=== PATIENT | female | born 1965 | race African-American/Black ===

== ENCOUNTER 2019-06-08 10:42 | Inpatient (IN) | payer MEDICARE, OTHER ==
[~2019-06-08] VITALS: Ht 154.9 cm; Wt 46.7 kg
[2019-06-08 10:42] VITALS: BP 140/90
[~2019-06-08 10:42] MED LIST: AMLO10TA PO; ATI.5 PO; LEVE1000 PO; PROM25TA85 PO; RANI-287 PO; SERT50TA PO
--- NOTE | 2019-06-08 10:52 | NUR ---
PT AMBULATED TO ER BED 02
--- NOTE | 2019-06-08 10:57 | NUR ---
C/O INTERMITTENT CHEST PAIN 8/10, CHILLS, N/V X 1.5 WEEKS. PT DENIES FEVER/DIARRHEA. HX: EPILEPSY, HTN, MIGRAINES, HYPOTHYROID, ANXIETY RX: KEPPRA, TOPAMAX, LISINOPRIL, TRAMADOL, IMITREX
[2019-06-08] MEDS ORDERED: MORPHINE SULFATE 4 MG/ML SYR IVP ONE (11:10)
[2019-06-08] MEDS ORDERED: NITROGLYCERIN 2% 1 GM PKT TP ONE (11:10)
--- NOTE | 2019-06-08 11:25 | NUR ---
BLOOD SAMPLE SEND TO THE LAB
[2019-06-08 11:35] LABS: BASOPHILS % (AUTO) 0.3 % (0.0-2.0); EOSINOPHILS # (AUTO) 0.1 K/uL (0-0.4); EOSINOPHILS % (AUTO) 0.8 % (0.0-4.0); HEMOGLOBIN 14.7 g/dL (12.0-16.0); LYMPHOCYTES # (AUTO) 1.3 K/uL (2.5-16.5); LYMPHOCYTES % (AUTO) 16.5 % (20.5-51.1); MEAN CORPUSCULAR HEMOGLOBIN 33 pg (27-31); MEAN CORPUSCULAR HGB CONC 34 g/dL (33-37); MEAN CORPUSCULAR VOLUME 98.9 fL (80-94); MONOCYTES # (AUTO) 0.4 K/uL (0.8-1.0); MONOCYTES % (AUTO) 5.4 % (1.7-9.3); NEUTROPHILS # (AUTO) 6.2 K/uL (1.8-7.7); PLATELET COUNT (AUTO) 341 K/uL (140-450); RED BLOOD CELL COUNT(AUTO) 4.44 MIL/uL (4.20-5.40); RED CELL DISTRIBUTION WIDTH 12.7 % (11.6-13.7); WHITE BLOOD COUNT (AUTO) 8.1 K/uL (4.8-10.8)
[2019-06-08 11:47] LABS: CHOL/HDL RATIO 3.9 (1-4.5)
[2019-06-08 11:51] LABS: ALBUMIN 4.2 g/dL (3.4-5.0); ANION GAP 18.9 (8-16); CARBON DIOXIDE 25.7 mmol/L (21-32); CREATININE 0.7 mg/dL (0.6-1.3); POTASSIUM 3.6 mmol/L (3.5-5.1); TOTAL BILIRUBIN 0.6 mg/dL (0.0-1.0)
[2019-06-08 11:58] LABS: CREATINE KINASE MB 2.9 ng/mL (0-3.6)
[2019-06-08] MEDS ORDERED: ATORVASTATIN 80 MG TAB PO SCH (12:35)
[2019-06-08] MEDS ORDERED: GABA300C PO (12:47)
[2019-06-08] MEDS ORDERED: IMI50 PO (12:47)
[2019-06-08] MEDS ORDERED: SYN.075 PO (12:47)
[2019-06-08] MEDS ORDERED: TRAM50TA1 PO (12:47)
[2019-06-08] MEDS ORDERED: TOP100 PO (12:47)
[2019-06-08] MEDS ORDERED: ONDANSETRON 4 MG/2 ML VIAL IVP ONE (12:50)
[2019-06-08] MEDS ORDERED: MORPHINE SULFATE 2 MG/ML SYR IVP PRN (13:25)
[2019-06-08] MEDS ORDERED: DOCUSATE SODIUM 100 MG GELCAP PO PRN (13:25)
--- NOTE | 2019-06-08 13:25 | NUR ---
PATIENT ARRIVE VIA GURNEY TO FLOOR. PATIENT AMBULATED TO BED WITH STANDBY ASSIST. REPORT RECEIVED FROM DIALYSIS NURSEANN MARIE GLASER AT BEDSIDE FOR CONTINUITY OF CARE. PATIENT AOX4. RESPIRATIONS EVEN AND UNLABORED ON ROOM AIR, PATIENT STATES THAT PAIN LEVEL IS "BETTER". UPDATED BOARD. IV SITE INTACT, ASYMPTOMATIC AND PATENT, CURRENTLY SALINE LOCKED. UPDATED PATIENT TO PLAN OF CARE, SHE VERBALIZED UNDERSTANDING. ORIENTED PATIENT TO FLOOR, CALL LIGHT, TV. CALL LIGHT WITHIN REACH, WILL CONTINUE TO MONITOR PATIENT.
--- NOTE | 2019-06-08 13:30 | NUR ---
Patient will be admitted to care of Dr Mccloud. Admited to tele room number 106B. Belongings list completed. Report to ANN MARIE Medeiros.
[2019-06-08 13:35] VITALS: BP 169/96
--- NOTE | 2019-06-08 13:45 | NUR ---
DR ASHTON IN TO SPEAK TO THE PATIENT. WILL WAIT FOR HIS ORDERS.
[2019-06-08] MEDS ORDERED: NITROGLYCERIN 0.4 MG TAB SL PRN (13:50)
[2019-06-08 13:57] LABS: PROTHROMBIN TIME 9.9 secs (10.8-13.4)
[2019-06-08] MEDS ORDERED: amLODIPine 5 MG TAB PO SCH (14:00)
[2019-06-08 14:30] LABS: FREE T4 (FREE THYROXINE) 1.7 ng/dL (0.76-1.46); MAGNESIUM 1.7 mg/dL (1.8-2.4); PHOSPHORUS 4.4 mg/dL (2.5-4.9); THYROID STIMULATING HORMONE 0.49 uIU/mL (0.34-3.74)
[2019-06-08] MEDS: NACL 0.9% 1,000 ML IV SCH (14:30)
--- NOTE | 2019-06-08 14:47 | NUR ---
SCHEDULED MEDICATIONS GIVEN. PATIENT TOLERATED IT WELL. EDUCATION ABOUT MEDICATION GIVEN TO PATIENT. SHE VERBALIZED UNDERSTANDING. PT C/O HEADACHE AT THE MOMENT. WILL SPEAK TO DR. ASHTON ABOUT PATIENT'S PRN PAIN MEDICATION AND ALLERGIES.
--- NOTE | 2019-06-08 15:15 | NUR ---
PER YOLANDA, PHARMACIST, HE SPOKE TO DR. ASHTON ABOUT PATIENT'S ALLERGIES, AND NORCO IS OK. SPOKE TO PATIENT, SHE STATED SHE HAS HAD NORCO IN THE PAST WITH NO REACTIONS. WILL REASSESS PATIENT'S PAIN AND MEDICATED NEEDED.
--- NOTE | 2019-06-08 15:30 | NUR ---
PATIENT'S OWN MEDICATION BROUGHT TO PHARMACY. PER PATIENT, NO FAMILY MEMBERS CAN COME PICK THEM UP TONIGHT. PATIENT AWARE OF OWN MEDICATION IN PHARMACY AND STEPS TO RETRIEVE IT ONCE DISCHARGED. PATIENT RESTING IN BED, ON HER PHONE. ALL NEEDS MET AT THIS TIME. SAFETY PRECAUTIONS IN PLACE, BED IN LOWEST POSITION, CALL LIGHT WITHIN REACH, WILL CONTINUE TO MONITOR PATIENT.
[2019-06-08 16:00] VITALS: BP 162/94
[2019-06-08] MEDS: GABAPENTIN 300 MG CAP PO SCH (16:26)
[2019-06-08] MEDS: HYDROcodone/APAP 5/325 MG 1 TAB TAB PO PRN ×2 (16:26→22:27)
[2019-06-08] MEDS: ONDANSETRON 4 MG/2 ML VIAL IM/IVP PRN ×2 (16:28→21:50)
--- NOTE | 2019-06-08 16:30 | NUR ---
PATIENT C/O HEADACHE 02/10. PRN NORCO OFFERED. PER PATIENT, SHE HAS TAKEN NORCO BEFORE WITH NO SIDE EFFECTS. PATIENT ALSO C/O NAUSEA, PRN ZOFRAN OFFERED AND GIVEN. NORCO AND SCHEDULED MEDICATION GIVEN. PATIENT'S FRIENDS AT BEDSIDE. SAFETY PRECAUTIONS IN PLACE, CALL LIGHT WITHIN REACH, WILL CONTINUE TO MONITOR PATIENT.
--- NOTE | 2019-06-08 18:33 | NUR ---
PATIENT RESTING WITH EYES CLOSED. RESPIRATIONS EVEN AND UNLABORED, NO S/S OF SOB OR DISTRESS NOTED. SAFETY PRECAUTIONS IN PLACE, CALL LIGHT WITHIN REACH, WILL CONTINUE TO MONITOR PATIENT.
--- NOTE | 2019-06-08 19:21 | NUR ---
REPORT GIVEN TO EQUIPMENT MAN NURSE AT BEDSIDE FOR CONTINUITY OF CARE. PATIENT IN STABLE CONDITION.
--- NOTE | 2019-06-08 19:22 | NUR ---
RECEIVED REPORT FROM AM NURSE AT BEDSIDE. PT LAYING IN BED AWAKE ON LEFT SIDE. PATIENT AOX4. RESPIRATIONS EVEN AND UNLABORED ON ROOM AIR. UPDATED PATIENT BOARD. IV SITE INTACT, ASYMPTOMATIC AND PATENT WITH NS AT 50ML/HR. CALL LIGHT WITHIN REACH,SEIZURE PRECAUTIONS IN PLACE. LOW BED IN PLACE. WILL CONTINUE TO MONITOR PATIENT.
[2019-06-08 20:05] VITALS: BP 139/79
[2019-06-08] MEDS ORDERED: METOPROLOL 25 MG TAB PO SCH ×2 (21:00)
--- NOTE | 2019-06-08 21:45 | NUR ---
VERIFIED WITH DR. WASHINGTON THE 50 MG LOPRESSOR, BP IS 139/79, HR 83
[2019-06-08] MEDS: levETIRAcetam 500 MG TAB PO SCH (21:48)
[2019-06-08] MEDS: TOPIRAMATE 100 MG TAB PO SCH (21:49)
[2019-06-09 00:05] VITALS: BP 103/66
--- NOTE | 2019-06-09 00:35 | NUR ---
PT REFUSED TORADOL, NON ADMINISTERED. EXPLAINED THE BENEFITS AND RSIKS. PT VERBALIZED UNDERSTANDING
[2019-06-09 04:00] VITALS: BP 115/71
[2019-06-09] MEDS: LEVOTHYROXINE 0.075 MG TAB PO SCH (05:51)
[2019-06-09] MEDS: HYDROcodone/APAP 5/325 MG 1 TAB TAB PO PRN (05:51)
--- NOTE | 2019-06-09 05:51 | NUR ---
SYNTHROID GIVEN AT THIS TIME
--- NOTE | 2019-06-09 05:51 | NUR ---
NORCO GIVEN AT THIS TIME FOR HEADACHE OF 610
[2019-06-09] MEDS: ONDANSETRON 4 MG/2 ML VIAL IM/IVP PRN ×3 (05:53→14:51)
--- NOTE | 2019-06-09 05:53 | NUR ---
PT STATED SHE FELT NO NAUSEA, PT REFUSED ONDANSETRON
--- NOTE | 2019-06-09 07:09 | NUR ---
PT AWAKE, ALERT ORIENTED X 4, AMBULATORY. PT IN STABLE CONDITION AT THIS TIME
--- NOTE | 2019-06-09 07:10 | NUR ---
RECEIVED REPORT FROM PM NURSE AT BEDSIDE FOR CONTINUITY OF CARE. PT SLEEPING IN BED ON LEFT SIDE. PATIENT AOX4. RESPIRATIONS EVEN AND UNLABORED ON ROOM AIR. FLACC-0. UPDATED PATIENT BOARD. IV SITE INTACT, ASYMPTOMATIC AND PATENT WITH NS INFUSING AT 50 ML/HR. SAFETY PRECAUTIONS IN PLACE, CALL LIGHT WITHIN REACH, SEIZURE PRECAUTIONS IN PLACE. LOW BED IN PLACE. WILL CONTINUE TO MONITOR PATIENT.
[2019-06-09 07:15] LABS: BASOPHILS % (AUTO) 0.4 % (0.0-2.0); EOSINOPHILS # (AUTO) 0.1 K/uL (0-0.4); EOSINOPHILS % (AUTO) 1.3 % (0.0-4.0); HEMATOCRIT 40.6 % (36-48); HEMOGLOBIN 13.6 g/dL (12.0-16.0); LYMPHOCYTES # (AUTO) 1.9 K/uL (2.5-16.5); LYMPHOCYTES % (AUTO) 22.4 % (20.5-51.1); MEAN CORPUSCULAR HEMOGLOBIN 33 pg (27-31); MEAN CORPUSCULAR HGB CONC 33 g/dL (33-37); MEAN CORPUSCULAR VOLUME 99.1 fL (80-94); MONOCYTES # (AUTO) 0.7 K/uL (0.8-1.0); MONOCYTES % (AUTO) 8.7 % (1.7-9.3); NEUTROPHILS # (AUTO) 5.7 K/uL (1.8-7.7); NEUTROPHILS % (AUTO) 67.2 % (42.2-75.2); PLATELET COUNT (AUTO) 311 K/uL (140-450); RED CELL DISTRIBUTION WIDTH 12.5 % (11.6-13.7); WHITE BLOOD COUNT (AUTO) 8.5 K/uL (4.8-10.8)
[2019-06-09 07:19] LABS: CARBON DIOXIDE 23.7 mmol/L (21-32); CREATININE 0.7 mg/dL (0.6-1.3); POTASSIUM 3.7 mmol/L (3.5-5.1)
--- NOTE | 2019-06-09 07:40 | NUR ---
DOCTORS DOING THEIR ROUNDS. BREAKFAST BROUGHT TO PATIENT. SHE STATED SHE WILL ATTEMPT TO EAT BREAKFAST. WILL CONTINUE TO MONITOR PATIENT.
[2019-06-09 08:00] VITALS: BP 135/73
--- NOTE | 2019-06-09 08:03 | NUR ---
PATIENT HAS BEEN SCREENED AND CATEGORIZED MODERATE NUTRITION RISK. PATIENT WILL BE SEEN WITHIN 3-5 DAYS OF ADMISSION. 06/11/19 06/13/[address]
--- NOTE | 2019-06-09 08:40 | NUR ---
PATIENT C/O NAUSEA. REQUESTED PRN ZOFRAN. INFORMED HER OF NEXT SCHEDULED DOSE. SHE VERBALIZED UNDERSTANDING. PATIENT AGREEABLE TO TAKE ZOFRAN WHEN NEXT DOSE DUE AND TO TAKE 0900 MEDICATIONS THEN WELL. CALL LIGHT WITHIN REACH, WILL CONTINUE TO MONITOR PATIENT.
[2019-06-09 09:12] LABS: BARBITURATE, URINE NEG. ng/ml (NEG <=200); BENZODIAZEPINE, URINE NEG. ng/mL (NEG <=200); CANNABINOID, URINE NEG. ng/mL (NEG <=50); COCAINE, URINE NEG. ng/mL (NEG <=300); OPIATE, URINE POS. ng/mL (NEG <=2000); PHENCYCLIDINE SCREEN,URINE NEG. ng/mL (NEG <=25)
--- NOTE | 2019-06-09 09:48 | NUR ---
PRN ZOFRAN GIVEN TO PATIENT FOR C/O NAUSEA. PATIENT TOLERATED IT WELL. DAUGHTER AT BEDSIDE. PATIENT AGREEABLE TO TAKE SCHEDULED MEDICATIONS IN 5-10 MINUTES. WILL CONTINUE TO MONITOR PATIENT.
[2019-06-09] MEDS: levETIRAcetam 500 MG TAB PO SCH ×2 (10:06→20:18)
[2019-06-09] MEDS: SERTRALINE 50 MG TAB PO SCH (10:06)
[2019-06-09] MEDS: NACL 0.9% 1,000 ML IV SCH (10:07)
[2019-06-09] MEDS: METOPROLOL 25 MG TAB PO SCH ×2 (10:07→20:17)
[2019-06-09] MEDS: amLODIPine 5 MG TAB PO SCH (10:07)
[2019-06-09] MEDS: ATORVASTATIN 20 MG TAB PO SCH (10:07)
[2019-06-09] MEDS: GABAPENTIN 300 MG CAP PO SCH ×3 (10:07→16:14)
[2019-06-09] MEDS: TOPIRAMATE 100 MG TAB PO SCH ×2 (10:07→20:18)
--- NOTE | 2019-06-09 10:08 | NUR ---
ORDERED MEDICATIONS GIVEN. MEDICATIONS AND SIDE EFFECTS OF NEW MEDICATIONS EXPLAINED TO PATIENT. PATIENT VERBALIZED UNDERSTANDING AND TOLERATED THE MEDICATIONS WELL. DAUGHTER AT BEDSIDE. PATIENT HAD QUESTIONS ABOUT LANGUAGE TEACHER CONSULT. ANSWERED PATIENT'S QUESTIONS. ALL NEEDS MET AT THIS TIME. PATIENT STATES "FEELING BETTER", LESS NAUSEA. CALL LIGHT WITHIN REACH, WILL CONTINUE TO MONITOR PATIENT.
[2019-06-09] MEDS ORDERED: MAGNESIUM OXIDE 400 MG TAB PO SCH (11:00)
--- NOTE | 2019-06-09 11:30 | NUR ---
DR FITZPATRICK IN TO SEE THE PATIENT. WILL WAIT FOR HIS EVALUATION.
[2019-06-09 11:55] VITALS: BP 123/68
--- NOTE | 2019-06-09 12:00 | NUR ---
ORDERED MEDICATIONS GIVEN. PATIENT TOLERATED THE MEDICATIONS WELL. PATIENT DENIES NAUSEA AND CHEST PAIN AT THIS TIME. ALL NEEDS MET AT THIS TIME. CALL LIGHT WITHIN REACH, WILL CONTINUE TO MONITOR PATIENT.
--- NOTE | 2019-06-09 14:51 | NUR ---
PATIENT C/O NAUSEA, PRN ZOFRAN GIVEN. PATIENT TOLERATED IT WELL. DR. ASHTON NOTIFIED OF PATIENT'S FREQUENT NAUSEA BOUTS AND LACK OF APPETITE. NO NEW ORDERS, CALL LIGHT WITHIN REACH, WILL CONTINUE TO MONITOR PATIENT.
[2019-06-09 15:38] VITALS: BP 104/68
--- NOTE | 2019-06-09 16:16 | NUR ---
ORDERED MEDICATIONS GIVEN TO PATIENT. SHE TOLERATED THEM WELL. NO COMPLAINTS OF NAUSEA OF THIS TIME. ALL NEEDS MET. CALL LIGHT WITHIN REACH, WILL CONTINUE TO MONITOR PATIENT.
--- NOTE | 2019-06-09 18:15 | NUR ---
PATIENT RESTING IN BED ON THE PHONE, NO COMPLAINTS AT THIS TIME. WILL CONTINUE TO MONITOR PATIENT AND ENDORSE TO PROFILING MACHINE SET UP OPERATOR TOOL NURSE.
--- NOTE | 2019-06-09 19:18 | NUR ---
REPORT GIVEN TO COAL CHUTE WORKER NURSE AT BEDSIDE FOR CONTINUITY OF CARE. PATIENT IN STABLE CONDITION.
--- NOTE | 2019-06-09 19:19 | NUR ---
BEDSIDE REPORT RECEIVED FROM DAY SHIFT RN. A/O X4 PERSON PLACE TIME AND EVENT. DISCUSSED PLAN OF CARE. VERBALIZED UNDERSTANDING. AMBULATORY WITH STEADY GAIT. NO SIGNS OF DISTRESS. NO SOB. EVEN UNLABORED BREATHING. ROOM AIR. NO PAIN REPORTED AT THIS TIME. SKIN INTACT. IV @ R AC 20G INFUSING NS @50. PATENT AND INTACT. TELE MONITOR PLACED. BED IN LOWEST POSITION. SEIZURE PRECAUTIONS IN PLACE. CALL LIGHT WITHIN REACH. WILL CONTINUE TO MONITOR.
[2019-06-09 20:00] VITALS: BP 107/67
[2019-06-09] MEDS ORDERED: NYSTATIN CRE 100 MU/GM 15 GM TUBE TP SCH (21:00)
--- NOTE | 2019-06-09 21:00 | NUR ---
PT LAYING IN BED. MEDS ADMIN. SIDE EFFECTS WERE DISCUSSED. VERBALIZE UNDERSTANDING. TOLERATED WELL. VSS.
--- NOTE | 2019-06-09 23:00 | NUR ---
PT REQUESTS AN EXTRA BLANKET. NO PAIN REPORTED NO NAUSEA REPORTED. WILL CONTINUE TO MONITOR.
[2019-06-10] VITALS: BP 93/60
--- NOTE | 2019-06-10 00:39 | NUR ---
PT SLEEPING IN BED NO SIGNS OF DISTRESS. VSS. WILL CONTINUE TO MONITOR.
--- NOTE | 2019-06-10 02:43 | NUR ---
PT SLEEPING IN BED. EASILY AROUSABLE. NO SIGNS OF DISTRESS. NO PAIN REPORTED. WILL CONTINUE TO MONITOR.
[2019-06-10] MEDS: NACL 0.9% 1,000 ML IV SCH (03:53)
[2019-06-10 04:00] VITALS: BP 108/58
--- NOTE | 2019-06-10 04:15 | NUR ---
PT SLEEPING IN BED. NO SIGNS OF DISTRESS. VITALS STABLE. NO PAIN REPORTED. NO NAUSEA REPORTED
[2019-06-10] MEDS: LEVOTHYROXINE 0.075 MG TAB PO SCH (06:21)
--- NOTE | 2019-06-10 06:41 | NUR ---
PT SLEEPING IN BED. EVEN UNLABORED BREATHING. BED IN LOWEST POSITION. PT IN STABLE CONDITION. WILL GIVE BEDSIDE REPORT TO DAYSHIFT RN FOR CONTINUITY OF CARE.
--- NOTE | 2019-06-10 07:18 | NUR ---
Received report from overnight babysitter nurse. Pt is resting in bed. Call light in reach.
[2019-06-10 08:00] VITALS: BP 130/75
[2019-06-10] MEDS: GABAPENTIN 300 MG CAP PO SCH ×2 (08:35→13:28)
[2019-06-10] MEDS: ATORVASTATIN 20 MG TAB PO SCH (08:36)
[2019-06-10] MEDS: amLODIPine 5 MG TAB PO SCH (08:37)
[2019-06-10] MEDS: SERTRALINE 50 MG TAB PO SCH (08:37)
[2019-06-10] MEDS: levETIRAcetam 500 MG TAB PO SCH (08:38)
[2019-06-10] MEDS: METOPROLOL 25 MG TAB PO SCH (08:38)
[2019-06-10] MEDS: TOPIRAMATE 100 MG TAB PO SCH (08:39)
[2019-06-10] MEDS: ONDANSETRON 4 MG/2 ML VIAL IM/IVP PRN (08:47)
--- NOTE | 2019-06-10 08:50 | NUR ---
PATIENT C/O NAUSEA, PRN ZOFRAN GIVEN. PATIENT TOLERATED IT WELL.
[2019-06-10] MEDS ORDERED: ATOR20TA40 PO (09:45)
[2019-06-10 09:47] LABS: APPEARANCE,URINE CLEAR (CLEAR); BILIRUBIN,URINE NEGATIVE (NEGATIVE); BLOOD, URINE NEGATIVE (NEGATIVE); COLOR,URINE YELLOW (YELLOW); LEUKOCYTE ESTERASE ,URINE NEGATIVE (NEGATIVE); NITRITE, URINE NEGATIVE (NEGATIVE); UGLUCOSE NEGATIVE (NEGATIVE)
[2019-06-10 09:57] LABS: RBC,URINE 0 /HPF (0-5); WBC,URINE NONE SEEN /HPF (0-5)
[2019-06-10] MEDS ORDERED: LACTULOSE 20 GM/30 ML UDC PO SCH (10:25)
--- NOTE | 2019-06-10 10:51 | NUR ---
PT SLEEPING IN BED. NO SIGNS OF DISTRESS. NO PAIN REPORTED. NO NAUSEA REPORTED
[2019-06-10 12:00] VITALS: BP 118/69
--- NOTE | 2019-06-10 13:18 | NUR ---
PT SLEEPING IN BED. NO SIGNS OF DISTRESS. NO PAIN REPORTED. NO NAUSEA REPORTED
[2019-06-10] MEDS ORDERED: INFLUENZA VACCINE QUAD 0.5 ML SYR IM PRN (15:05)
--- NOTE | 2019-06-10 15:54 | NUR ---
Pt discharged home. Discharge instructions given. Pt verbalized understanding. Pt home medications given back to her. IV removed from right AC. No bleeding. Pt ambulated out the door with steady gait. all belongings with patient upon discharge. Friend accompanied her to the main entrance.
== END 2019-06-10 15:54 | disposition home or self-care (01) | DRG 392 ==
LOC: MED 10:42 → MTU 12:58
PROVIDERS: ADMIT Family Medicine; ATTEND Family Medicine
DX: K21.9 Gastro-esophageal reflux disease without esophagitis (principal); R07.89 Other chest pain; G40.909 Epilepsy, unspecified, not intractable, without status epilepticus; I10 Essential (primary) hypertension; E03.9 Hypothyroidism, unspecified; F32.9 Major depressive disorder, single episode, unspecified; G43.909 Migraine, unspecified, not intractable, without status migrainosus; J45.909 Unspecified asthma, uncomplicated; F41.9 Anxiety disorder, unspecified; E78.5 Hyperlipidemia, unspecified; Q85.00 Neurofibromatosis, unspecified; Z80.0 Family history of malignant neoplasm of digestive organs; Z79.899 Other long term (current) drug therapy; Z88.6 Allergy status to analgesic agent; Z88.5 Allergy status to narcotic agent; Z87.891 Personal history of nicotine dependence; Z82.5 Family history of asthma and other chronic lower respiratory diseases; Z80.3 Family history of malignant neoplasm of breast
CPT/HCPCS: 36415; 71045; 74022; 80048; 80053; 80305; 81001; 81025; 82550; 82553; 83036; 83605; 83690; 83735; 83880; 84100; 84439; 84443; 84484; 85025; 85379; 85610; 85730; 87081; 93005; 96374; 96375; 99291; J2270; J2405; J7030; Q0092

== ENCOUNTER 2019-08-19 17:47 | Emergency (ER) | payer OTHER ==
[~2019-08-19] VITALS: Ht 154.9 cm; Wt 45.8 kg
[~2019-08-19 17:47] MED LIST changes: +ATOR20TA40 PO; +GABA300C PO; +IMI50 PO; -PROM25TA85 PO; +SYN.075 PO; +TOP100 PO; +TRAM50TA1 PO
--- NOTE | 2019-08-19 17:47 | NUR ---
Patient BIBA ALS, transferred to bed 2. RN evaluating patient at bedside.
[2019-08-19 17:48] VITALS: BP 143/93
--- NOTE | 2019-08-19 18:05 | NUR ---
54/F BIBA FROM HOME C/O HAVING AN AURA FOR THE PAST 30 MINUTES, PT HAS HX OF EPILEPSY AND STATES SHE SEES LIGHTS BEFORE HAVING A SEIZURE. ALSO C/O NAUSEA, DIZZINESS, HEADACHEX TODAY. HX EPILEPSY, HTN, MIGRAINE HEADACHE. LAST SEIZURE JUN 2019. PATIENT STATES PAIN OF 7/10 AT THIS TIME; VSS; PATIENT POSITIONED FOR COMFORT; HOB ELEVATED; BEDRAILS UP X2; BED DOWN. ER MD MADE AWARE OF PT STATUS.
--- NOTE | 2019-08-19 18:05 | NUR ---
Note undone in [facility] - 08/19/19 at 1901 by [email or web address] 54/F BIBA FROM HOME C/O HAVING AN AURA FOR THE PAST 30 MINUTES, PT HAS HX OF EPILEPSY AND STATES SHE SEES LIGHTS BEFORE HAVING A SEIZURE. ALSO C/O NAUSEA, DIZZINESS, HEADACHEX TODAY. HX EPILEPSY, HTN, MIGRAINE HEADACHE,HTN. LAST SEIZURE JUN 2019. PATIENT STATES PAIN OF 7/10 AT THIS TIME; VSS; PATIENT POSITIONED FOR COMFORT; HOB ELEVATED; BEDRAILS UP X2; BED DOWN. GIGI GILLESPIE MADE AWARE OF PT STATUS. Addendum: 08/19/19 at 1832 by [email or web address] Amendment undone in [facility] - 08/19/19 at 190 by [email or web address] PER EMS; PT GOT ZOFRAN 4 MG IV AT HOME FOR N/V.
--- NOTE | 2019-08-19 19:13 | NUR ---
RECEIVED REPORT FROM ANN MARIE LUIS.
--- NOTE | 2019-08-19 19:13 | NUR ---
Pt report given to YOSHI RN. Transfer of care at this time.
[2019-08-19] MEDS ORDERED: KETOROLAC 30 MG/ML VIAL IVP ONE (19:20)
[2019-08-19] MEDS ORDERED: NACL 0.9% 1,000 ML IV ONE (19:20)
[2019-08-19 19:57] LABS: ALBUMIN 3.6 g/dL (3.4-5.0); ANION GAP 12.4 (8-16); CARBON DIOXIDE 25.9 mmol/L (21-32); CREATININE 0.7 mg/dL (0.6-1.3); POTASSIUM 4.3 mmol/L (3.5-5.1); TOTAL BILIRUBIN 0.2 mg/dL (0.0-1.0)
[2019-08-19 21:32] VITALS: BP 136/61
--- NOTE | 2019-08-19 21:32 | NUR ---
HEVER OKAY TO DISCHARGE PATIENT. Patient discharged with v/s stable. Written and verbal after care instructions given and explained. Patient verbalized understanding. Ambulatory with steady gait. All questions addressed prior to discharge. Advised to follow up with PMD.
--- NOTE | 2019-08-19 21:32 | NUR ---
PER DR. MCDERMOTT, CANCEL UA AND UDS. PATIENT OKAY FOR DISCHARGE.
== END 2019-08-19 21:32 | disposition home or self-care (01) ==
LOC: MED 17:47
DX: R51 Headache (principal); G40.909 Epilepsy, unspecified, not intractable, without status epilepticus; J45.909 Unspecified asthma, uncomplicated; I10 Essential (primary) hypertension; Z98.890 Other specified postprocedural states; Z79.899 Other long term (current) drug therapy; Z88.6 Allergy status to analgesic agent; Z88.5 Allergy status to narcotic agent
CPT/HCPCS: 36415; 80053; 96361; 96374; 99283; J1885; J7030